=== PATIENT | female | born 1935 | race Caucasian/White ===

== ENCOUNTER 2016-04-25 09:56 | Outpatient (CLI) | payer MEDICARE, BC ==
--- NOTE | 2016-04-25 11:18 | RAD ---
2 VIEWS OF RIGHT HIP: Date: 04/25/16 COMPARISON: None. HISTORY: Right hip pain for a long time. FINDINGS: Two views of the right hip show no evidence of acute fracture or dislocation. No degenerative change s are seen. No soft tissue swelling is present. IMPRESSION: Unremarkable exam. POS: [facility]
== END 2016-04-25 09:57 | disposition home or self-care (01) ==
LOC: BURRAD 09:56
PROVIDERS: ATTEND Family Medicine
DX: M25.551 Pain in right hip (principal)

== ENCOUNTER 2016-04-26 09:35 | Outpatient (CLI) | payer MEDICARE, BC ==
[2016-04-26 11:05] LABS: ALT (SGPT) 24 U/L (0-55); AST (SGOT) 20 U/L (5-34); Alkaline Phosphatase 87 U/L (40-150); Anion Gap 15 mmol/L (10-20); BUN (Urea Nitrogen) 29 mg/dL (9.8-20.1); Bilirubin, Total 0.5 mg/dL (0.2-1.2); Calc. Creatinine Clearance 0 mL/min (70-130); Calcium 9.8 mg/dL (7.8-10.44); Carbon Dioxide 23 mmol/L (23-31); Chloride 108 mmol/L (98-107); Estimated GFR-MDRD 45; Globulin 1.9 g/dL (2.4-3.5); LDL Cholesterol, Calculated 140 mg/dL; Protein, Total 6.8 g/dL (5.8-8.1)
[2016-04-26 12:12] LABS: #Basophils 0.1 thou/uL (0.0-0.2); #Eosinphils 0.1 thou/uL (0.0-0.7); #Lymphocytes 2.1 thou/uL (1.20-3.40); #Monocytes 0.8 thou/uL (0.11-0.59); %Basophils 0.7 % (0.0-1.0); %Eosinophils 0.6 % (0.0-10.0); %Monocytes 9.2 % (0.0-10.0); Hematocrit 47.7 % (36.0-47.0); Mean Platelet Volume 8.9 fL (7.4-10.4); Red Blood Cell (RBC) Count 4.88 mill/uL (4.20-5.40)
== END 2016-04-26 09:36 | disposition home or self-care (01) ==
LOC: HPCALD 09:35
PROVIDERS: ATTEND Family Medicine
DX: E78.2 Mixed hyperlipidemia (principal); I10 Essential (primary) hypertension
CPT/HCPCS: 36415; 80053; 80061; 84443; 85025

== ENCOUNTER 2016-05-02 09:32 | Outpatient (CLI) | payer MEDICARE, BC ==
[2016-05-02 12:08] LABS: Anion Gap 13 mmol/L (10-20); BUN (Urea Nitrogen) 26 mg/dL (9.8-20.1); Calc. Creatinine Clearance 0 mL/min (70-130); Calcium 9.5 mg/dL (7.8-10.44); Carbon Dioxide 25 mmol/L (23-31); Chloride 108 mmol/L (98-107); Estimated GFR-MDRD 55; Glucose 98 mg/dL (83-110); Potassium 4.5 mmol/L (3.5-5.1); Sodium 141 mmol/L (136-145)
[2016-05-02 13:00] LABS: Eosinophils 4 % (0-10); Hemoglobin 16.1 g/dL (12.0-16.0); Lymphocytes 37 % (21-51); MDiff Complete? YES; Mean Corpuscular Hemoglobin 33.8 pg (27.0-31.0); Mean Corpuscular Volume 96.5 fl (81.0-99.0); Mean Platelet Volume 8.2 fL (7.4-10.4); Monocytes 5 % (0-10); Neutrophil 54 % (42-75); Platelet Count 256 thou/uL (130-400); Red Blood Cell (RBC) Count 4.76 mill/uL (4.20-5.40); White Blood Cell (WBC) Count 7.3 thou/uL (4.8-10.8)
== END 2016-05-02 09:33 | disposition home or self-care (01) ==
LOC: HPCALD 09:32
PROVIDERS: ATTEND Family Medicine
DX: N28.9 Disorder of kidney and ureter, unspecified (principal); D75.1 Secondary polycythemia
CPT/HCPCS: 36415; 80048; 82668; 85025

== ENCOUNTER 2016-06-27 09:58 | Outpatient (CLI) | payer MEDICARE, BC ==
--- NOTE | 2016-06-27 20:17 | RAD ---
LEFT RIBS: Date: 06-27-16 FINDINGS: Three views show no apparent fracture. Subtle fractures might be missed on this study. The adjacent lung is clear. There is no pneumothorax or pleural effusion. A line seen in the left transverse proc ess of L1 is probably developmental and not acutely traumatic. The findings should be correlated wit h the side of pain. IMPRESSION: No definite acute finding. POS: HOME
--- NOTE | 2016-06-27 20:19 | RAD ---
THORACIC SPINE TWO VIEWS: Date: 06-27-16 FINDINGS: While no major fracture was seen, the superior endplate of the T10 vertebral body seem ever so sligh tly compressed. If there was pain in this region, the possibility of a minimal acute compression cou ld not be excluded. Certainly no major fractures were seen, nor was there any disc space narrowing. IMPRESSION: Question of slight compression of the superior endplate of T10, age indeterminate. Code T POS: HOME
== END 2016-06-27 09:59 | disposition home or self-care (01) ==
LOC: BURRAD 09:58
PROVIDERS: ATTEND Family Medicine
DX: S20.229A Contusion of unspecified back wall of thorax, initial encounter (principal)
CPT/HCPCS: 72070

== ENCOUNTER 2017-01-16 12:21 | Outpatient (CLI) | payer MEDICARE, BC ==
--- NOTE | 2017-01-16 14:56 | RAD ---
RIGHT WRIST THREE VIEWS: Date: 01-16-17 FINDINGS: No recent fracture was appreciated. There is some mild degenerative changes in the intercarpal joints . The distal radius and ulna appear intact. A tiny rounded rocío of bone at the tip of the ulnar styl oid could be from a very old injury. The metacarpals appear intact. IMPRESSION: Mild degenerative change but no definite recent traumatic finding. POS: HOME
== END 2017-01-16 12:22 | disposition home or self-care (01) ==
LOC: BURRAD 12:21
PROVIDERS: ATTEND Family Medicine
DX: M25.531 Pain in right wrist (principal); M19.031 Primary osteoarthritis, right wrist

== ENCOUNTER 2021-06-08 09:39 | Outpatient (CLI) | payer MEDICARE, BC | END 2021-06-08 09:40 | disposition home or self-care (01) | LOC: BURRAD 09:39 | PROVIDERS: ATTEND Family Medicine | DX: R05.9 Cough, unspecified (principal) | CPT/HCPCS: 71046 ==

== ENCOUNTER 2022-05-12 14:00 | Outpatient (CLI) | payer MEDICARE, BC | END 2022-05-12 14:01 | disposition home or self-care (01) | LOC: BURRAD 14:00 | PROVIDERS: ATTEND Nurse Practitioner Family | DX: S40.022A Contusion of left upper arm, initial encounter (principal) ==